=== PATIENT | female | born 1935 | race Two or more races ===

== ENCOUNTER 2016-12-12 05:25 | Inpatient (IN) | payer MEDICARE, BC ==
[~2016-12-12] VITALS: Ht 157.5 cm; Wt 49.4 kg
[2016-12-12] VITALS (7 sets, daily range): BP systolic 121–156; BP diastolic 37–80
[~2016-12-12 05:25] MED LIST: ASPIRIN81 MG ORAL; PROAIR HFA8.5 GM INH; inhaler
[2016-12-12] MEDS ORDERED: Azithromycin Inj IV ONE (05:35)
[2016-12-12] MEDS ORDERED: ADVAIR 100-501 EACH INH (05:42)
[2016-12-12] MEDS ORDERED: Albuterol ud Inhalation HHN ONE ×2 (05:45→06:45)
[2016-12-12] MEDS ORDERED: Ipratropium 0.02% Inh Soln 2.5ml UD HHN ONE (05:45)
[2016-12-12] MEDS ORDERED: Solu-MEDROL 125mg Inj IVP ONE (05:45)
--- NOTE | 2016-12-12 05:45 | Emergency Room Report ---
History of Present Illness General Chief Complaint: Asthma Source: Patient Present Illness HPI This is a 81-year-old female with a history of asthma. She presents with chief complaint of shortness of breath. She has congestion and cough the last 3 days. Not getting better with her Advair. She has no other inhaler. Denies any chest pain. Has chest tightness. Also with subjective high fever tonight. Coughing is positive for phlegm. No abdominal pain. No diarrhea. Allergies: Coded Allergies: No Known Allergies (Unverified , 07/11/14) Patient History Past Medical History: see triage record, old chart reviewed, asthma Past Surgical History: other Pertinent Family History: none Social History: Denies: smoking Now: No Immunizations: other Reviewed Nursing Documentation: PMH: Agreed, PSxH: Agreed Nursing Documentation-PMH Hx Cardiac Problems: No Hx Asthma: Yes Hx Cancer: No Hx Gastrointestinal Problems: No Hx Neurological Problems: Yes Hx Dizziness: Yes Review of Systems Constitutional: Reports: fever, malaise Eye: Denies: blurred vision, eye pain ENT: Denies: ear pain, nose congestion, throat swelling Respiratory: Reports: cough, shortness of breath, wheezing Cardiovascular: Denies: chest pain, palpitations Gastrointestinal: Denies: abdominal pain, diarrhea, nausea, vomiting Musculoskeletal: Denies: back pain, joint pain Skin: Denies: rash Neurological: Denies: headache, numbness Endocrine: Denies: increased thirst, increased urine Hematologic/Lymphatic: Denies: easy bruising All Other Systems: negative except mentioned in HPI Physical Exam Vital Signs Date Time Temp Pulse Resp B/P Pulse Ox O2 Delivery O2 Flow Rate FiO2 12/12/16 05:29 99.3 100 18 128/55 90 Room Air vitals with fever and hypoxia Sp02 EP Interpretation: abnormal General Appearance: alert, mild distress, thin Head: normocephalic, atraumatic Eyes: bilateral eye EOMI, bilateral eye PERRL ENT: hearing grossly normal, normal pharynx Neck: full range of motion, supple, no meningismus Respiratory: chest non-tender, decreased breath sounds, wheezing Cardiovascular #1: regular rate, rhythm, no murmur Gastrointestinal: normal bowel sounds, non tender, no mass, no organomegaly, no bruit, non-distended Musculoskeletal: back normal, gait/station normal, normal range of motion Neurologic: alert, oriented x3 Psychiatric: mood/affect normal Skin: warm/dry Medical Decision Making Diagnostic Impression: Primary Impression: Asthma attack Additional Impression: Acute respiratory failure with hypoxia ER Course Patient presents with asthma exacerbation and mild hypoxia. After breathing treatment oxygenation is now 93%. Most likely a viral illness. She's not on albuterol at home. Labs unremarkable so far. Because of her age and hypoxia, will admit for further treatment. EKG Diagnostic Results Rate: normal Rhythm: NSR ST Segments: no acute changes Rhythm Strip Diag. Results EP Interpretation: yes Rate: 85 Rhythm: NSR, no PVC's, no ectopy Chest X-Ray Diagnostic Results EP Interpretation: Yes Findings: no consolidation, no effusion, no pneumothorax, no acute cardiopulmonary disease Number of Views: 1 Last Vital Signs Date Time Temp Pulse Resp B/P Pulse Ox O2 Delivery O2 Flow Rate FiO2 12/12/16 05:29 99.3 100 18 128/55 90 Room Air Status: improved Disposition: ADMITTED INPATIENT Condition: Serious HUMZA CASON M.D. Dec 12, 2016 05:45
[2016-12-12 06:15] LABS: APPEARANCE,URINE CLEAR; BASOPHILS % (AUTO) 1.1 % (0.0-2.0); EOSINOPHILS % (AUTO) 0.5 % (0.0-3.0); KETONES,URINE 2+ (NEGATIVE); LEUKOCYTE ESTERASE ,URINE 1+ (NEGATIVE); LYMPHOCYTES % (AUTO) 23.1 % (20.0-45.0); MEAN CORPUSCULAR HEMOGLOBIN 26.7 PG (27.0-31.0); MEAN CORPUSCULAR HGB CONC 32.4 G/DL (32.0-36.0); MEAN CORPUSCULAR VOLUME 82 FL (80-99); MEAN PLATELET VOLUME 9.6 FL (6.5-10.1); MONOCYTES % (AUTO) 9.2 % (1.0-10.0); NEUTROPHILS % (AUTO) 66.2 % (45.0-75.0); NITRITE,URINE NEGATIVE (NEGATIVE); PH,URINE 5 (4.5-8.0); PLATELET COUNT 211 K/UL (150-450); PROTEIN,URINE 1+ (NEGATIVE); RED BLOOD COUNT 5.71 M/UL (4.20-5.40); RED CELL DISTRIBUTION WIDTH 12.8 % (11.6-14.8); UROBILINOGEN,URINE NORMAL MG/DL (0.0-1.0); WHITE BLOOD COUNT 9.7 K/UL (4.8-10.8)
[2016-12-12 06:27] LABS: SQUAMOUS EPITHELIAL CELL,UR MODERATE /LPF (NONE/OCC)
[2016-12-12 06:28] LABS: BACTERIA,URINE FEW /HPF; MUCUS,URINE FEW /LPF (NONE/OCC)
[2016-12-12 06:45] LABS: ALANINE AMINOTRANSFERASE 11 U/L (3-33); ALBUMIN/GLOBULIN RATIO 1.2 (1.0-2.7); ANION GAP 18 (5-15); ASPARTATE AMINO TRANSFERASE 20 U/L (5-40); CALCIUM 9.5 mg/dL (8.6-10.2); CARBON DIOXIDE 24 mEQ/L (20-30); CHLORIDE 97 mEQ/L (98-107); CREATININE 0.8 mg/dL (0.5-0.9); HEMOLYSIS 25; SODIUM 139 mEQ/L (135-145); TOTAL PROTEIN 7.9 g/dL (6.6-8.7)
[2016-12-12 06:46] LABS: TROPONIN I < 0.30 ng/mL (<=0.30)
[2016-12-12 06:55] LABS: CKMB < 1.5 ng/mL (< 3.8)
[2016-12-12] MEDS ORDERED: Azithromycin 500 MG in NS 275 ML IV ONE (07:00)
[2016-12-12] MEDS ORDERED: guaiFENesin w/Codeine 5ml Liq ud ORAL PRN (10:00)
[2016-12-12] MEDS: Albuterol ud Inhalation HHN SCH ×4 (11:00→23:00)
[2016-12-12] MEDS: cefTRIAXone 1gm/D5W 55ml IVPB SCH ×2 (11:00)
--- NOTE | 2016-12-12 11:06 | Diagnostic Imaging Report ---
Indication: Shortness of breath Comparison: 07/11/14 A single view chest radiograph was obtained. Findings: No definite infiltrate or pulmonary vascular congestion identified. The heart is enlarged. The aorta is mildly enlarged consistent with atherosclerotic vascular disease. The bones are osteopenic. Impression: No acute disease
[2016-12-12] MEDS: Advair 250/50 Inhaler - 14 dose INH SCH (18:00)
[2016-12-12] MEDS ORDERED: Advair 250/50 Inhaler - 14 dose INH SCH (18:00)
--- NOTE | 2016-12-12 22:28 | History and Physical Report ---
DATE OF ADMISSION: 12/12/2016 REASON FOR ADMISSION: Asthma exacerbation. HISTORY OF PRESENT ILLNESS: The patient is a 81-year-old female, with a history of asthma, who presents with increasing shortness of breath, congestion, and cough over the past 72 hours. The patient had been taking Advair, but has not improved. The patient denies any chest pain. She admits to chest tightness. The patient also with subjective fevers, cough, and difficulty to mobilize sputum. The patient presented to the emergency room and was treated accordingly, and now being admitted for asthma exacerbation. PAST MEDICAL HISTORY: Notable for the above. MEDICATIONS: Noted. ALLERGIES: Noted. SOCIAL HISTORY: The patient does not smoke or drink. She is of [place] descent. She is currently retired. Lives with family. FAMILY HISTORY: Reviewed and is otherwise noncontributory. REVIEW OF SYSTEMS: All 10-point is reviewed and notable for the above including fevers, malaise, cough, shortness of breath, wheezing, chest tightness, and some respiratory complaints. PHYSICAL EXAMINATION: GENERAL: A well-developed female, overall comfortable. VITAL SIGNS: The vital signs in the emergency room on initial evaluation, pulse 100, temperature 99.3 degrees, respiratory rate 18, blood pressure 128/55, and saturating 90%, thereafter saturations are now 97% on two liters of oxygen. HEENT: Fairly negative. Extraocular movements are grossly intact. Pupils are equal and reactive. LUNGS: With scattered wheezes. Moderate breath sounds. Minimal expiratory rhonchi. CARDIAC: Normal S1 and S2. Regular rate and rhythm without murmurs, rubs, or gallops. ABDOMEN: Soft, nontender, and nondistended. EXTREMITIES: No cyanosis or clubbing. No edema. NEUROLOGIC: Grossly nonfocal. LABORATORY DATA: Reviewed. CBC is essentially normal. Chemistry is fairly normal as well. All reviewed. Blood sugar is slightly elevated at 124. Urinalysis with 2 to 4 white cells. IMPRESSION: 1. Asthma with acute exacerbation. 2. Respiratory insufficiency. 3. Possible mild underlying respiratory infection, otherwise clinically stable. RECOMMENDATIONS: 1. IV Solu-Medrol. 2. Nebulizer therapy. 3. Empiric antibiotics. 4. Oxygen therapy. 5. DVT prophylaxis. 6. Monitor clinically and discharge with home health once improved. Colby Hernandez M.D. DR: KEM JOB#: [id number] CC:
[2016-12-12] MEDS: Solu-MEDROL 40mg Inj IVP SCH (23:33)
[2016-12-12] MEDS: Heparin 5000 units/ml inj SUBQ SCH (23:33)
[2016-12-13 00:54] VITALS: BP 123/51
[2016-12-13] MEDS: Albuterol ud Inhalation HHN SCH ×6 (03:00→23:00)
[2016-12-13 04:00] VITALS: BP 137/62
[2016-12-13 08:00] VITALS: BP 118/55
[2016-12-13] MEDS: Solu-MEDROL 40mg Inj IVP SCH ×2 (08:22→20:36)
--- NOTE | 2016-12-13 08:23 | General Progress Note ---
Assessment/Plan Assessment/Plan IMPRESSION: 1. Asthma with acute exacerbation. 2. Respiratory insufficiency. 3. Possible mild underlying respiratory infection PLAN same overall continue same oxygen iv solumedrol marquita galarza dc when improved impression, plan, and exam edited and reviewed in detail care discussed with RN Subjective Allergies: Coded Allergies: No Known Allergies (Unverified , 07/11/14) Subjective better less sob still with cough and wheeze Objective Last 24 Hour Vital Signs Date Time Temp Pulse Resp B/P Pulse Ox O2 Delivery O2 Flow Rate FiO2 12/13/16 04:00 97.9 73 21 137/62 92 Room Air 12/13/16 00:54 97.7 61 19 123/51 92 Nasal Cannula 12/12/16 21:50 97.3 64 18 132/70 95 Nasal Cannula 2.0 12/12/16 20:22 68 16 147/69 95 Nasal Cannula 2.0 12/12/16 20:00 98.6 101 20 136/80 91 Room Air 12/12/16 19:41 98.0 68 16 147/69 95 Nasal Cannula 2.0 12/12/16 15:27 97.8 65 16 121/62 94 Nasal Cannula 2.0 12/12/16 09:00 99.2 88 18 132/55 99 Nasal Cannula 2.0 28 Intake and Output 12/12/16 12/13/16 19:00 07:00 Intake Total 1275 ml 1100 ml Balance 1275 ml 1100 ml Intake Oral 0 ml IV Total 1275 ml 1100 ml # Voids 2 Height (Feet): 5 Height (Inches): 2.00 Weight (Pounds): 109 Objective GENERAL: A well-developed female, overall comfortable. HEENT: Fairly negative. Extraocular movements are grossly intact. Pupils are equal and reactive. LUNGS: With some scattered wheezes. Moderate breath sounds. Minimal expiratory rhonchi and improved CARDIAC: Normal S1 and S2. Regular rate and rhythm without murmurs, rubs, or gallops. ABDOMEN: Soft, nontender, and nondistended. EXTREMITIES: No cyanosis or clubbing. No edema. NEUROLOGIC: Grossly nonfocal. YADIRA WHITE Dec 13, 2016 08:23
[2016-12-13] MEDS: Heparin 5000 units/ml inj SUBQ SCH ×2 (08:27→20:37)
[2016-12-13] MEDS: Advair 250/50 Inhaler - 14 dose INH SCH ×2 (09:00→20:37)
[2016-12-13] MEDS: cefTRIAXone 1gm/D5W 55ml IVPB SCH ×2 (11:21)
[2016-12-13 12:40] VITALS: BP 143/63
[2016-12-13 16:30] VITALS: BP 110/51
[2016-12-13 20:00] VITALS: BP 114/57
[2016-12-14] VITALS: BP 133/66
[2016-12-14] MEDS: Albuterol ud Inhalation HHN SCH ×5 (00:24→15:13)
[2016-12-14 04:00] VITALS: BP 121/60
[2016-12-14 08:00] VITALS: BP 112/56
[2016-12-14] MEDS: Heparin 5000 units/ml inj SUBQ SCH (08:01)
[2016-12-14] MEDS: Solu-MEDROL 40mg Inj IVP SCH (08:01)
[2016-12-14] MEDS: Advair 250/50 Inhaler - 14 dose INH SCH (09:09)
[2016-12-14] MEDS: cefTRIAXone 1gm/D5W 55ml IVPB SCH ×2 (10:49)
--- NOTE | 2016-12-14 11:31 | Cardiology Report ---
APPROVED REPORT EKG Measurement Heart [id number] IN [id number] Normal sinus rhythm Normal ECG
[2016-12-14 12:00] VITALS: BP 140/91
--- NOTE | 2016-12-14 12:00 | General Progress Note ---
Assessment/Plan Assessment/Plan IMPRESSION: 1. Asthma with acute exacerbation. 2. Respiratory insufficiency. 3. Possible mild underlying respiratory infection PLAN dc home medrol tammi albuterol prn advair home health stable at present impression, plan, and exam edited and reviewed in detail care discussed with RN Subjective Allergies: Coded Allergies: No Known Allergies (Unverified , 07/11/14) Subjective significantly improved wants to go home Objective Last 24 Hour Vital Signs Date Time Temp Pulse Resp B/P Pulse Ox O2 Delivery O2 Flow Rate FiO2 12/14/16 08:00 97.5 87 20 112/56 95 Nasal Cannula 2.0 12/14/16 07:05 85 20 99 Nasal Cannula 1.0 24 12/14/16 07:04 Nasal Cannula 1.0 24 12/14/16 07:04 97 Nasal Cannula 1.0 24 12/14/16 07:00 79 20 97 Nasal Cannula 1.0 24 12/14/16 04:00 97.2 81 18 121/60 98 Nasal Cannula 2.0 12/14/16 03:30 62 20 99 Nasal Cannula 1.0 24 12/14/16 03:30 60 20 97 Nasal Cannula 1.0 24 12/14/16 00:00 97.5 66 18 133/66 94 Room Air 12/13/16 23:30 65 20 99 Room Air 21 12/13/16 23:30 61 20 98 Room Air 21 12/13/16 20:00 97.7 86 19 114/57 94 Room Air 12/13/16 19:40 76 20 99 Nasal Cannula 2.0 12/13/16 19:30 97 Nasal Cannula 1.0 24 12/13/16 19:30 Nasal Cannula 1.0 24 12/13/16 19:30 75 20 98 Nasal Cannula 2.0 12/13/16 16:30 98.1 92 19 110/51 96 Nasal Cannula 2.0 12/13/16 15:28 82 18 99 Nasal Cannula 2.0 28 12/13/16 15:20 28 12/13/16 15:20 84 18 97 Nasal Cannula 2.0 28 12/13/16 12:40 97.0 79 18 143/63 94 Nasal Cannula 2.0 12/13/16 12:28 73 18 99 Nasal Cannula 1.0 12/13/16 12:23 68 18 98 Nasal Cannula 1.0 24 12/13/16 12:21 68 18 Nasal Cannula 1.0 Intake and Output 12/13/16 12/14/16 19:00 07:00 Intake Total 1700 ml 1460 ml Balance 1700 ml 1460 ml Intake Oral 600 ml 360 ml IV Total 1100 ml 1100 ml # Voids 1 2 Height (Feet): 5 Height (Inches): 2.00 Weight (Pounds): 109 Objective GENERAL: A well-developed female, overall comfortable. HEENT: Fairly negative. Extraocular movements are grossly intact. Pupils are equal and reactive. LUNGS: Moderate breath sounds. resolved wheeze and rhonchi CARDIAC: Normal S1 and S2. Regular rate and rhythm without murmurs, rubs, or gallops. ABDOMEN: Soft, nontender, and nondistended. EXTREMITIES: No cyanosis or clubbing. No edema. NEUROLOGIC: Grossly nonfocal. YADIRA WHITE Dec 14, 2016 12:00
[2016-12-14 16:28] VITALS: BP 131/58
--- NOTE | 2016-12-16 14:40 | Discharge Summary ---
Discharge Summary Hospital Course Date of Admission Dec 12, 2016 at 18:51 Date of Discharge Dec 14, 2016 at 17:02 Admitting Diagnosis Asthma Exacerbation HPI Oni Newman is a 81 year old female who was admitted on Dec 12, 2016 at 18:51 for Asthma Exacerbation Hospital Course [id number] Discharge Discharge Disposition Patient was discharged to Home (01) Discharge Diagnoses: China Rodrigues NP Dec 16, 2016 14:40
--- NOTE | 2016-12-17 02:18 | Discharge Summary 2 SIG ---
DATE OF ADMISSION: 12/12/2016 DATE OF DISCHARGE: 12/14/2016 BRIEF HOSPITAL COURSE: The patient is a 81-year-old female with history of asthma presented with increasing shortness of breath, congestion, and cough over the past 72 hours. The patient had been taking Advair, but has not improved. She presents with subjective fevers, cough and difficulty to mobilize sputum. She was admitted for asthma exacerbation and was given oxygen therapy, nebulizer therapy, IV Solu-Medrol and was started on empiric antibiotics ceftriaxone. Chest x-ray showed no acute disease. Blood culture did not isolate any growth. She was continued on Advair and was feeling better with less shortness of breath and significant improvement in breathing. She was eventually discharged home with home health. Advised to continue Medrol Abhijit as outpatient. FINAL DIAGNOSES: 1. Asthma with acute exacerbation. 2. Respiratory insufficiency. 3. Possible underlying respiratory infection. Colby Hernandez M.D. I have been assigned to dictate discharge summary on this account and I was not involved in the patient's management. China Rodrigues N.P. DR: Todd JOB#: [id number] CC: ELE
== END 2016-12-14 17:02 | disposition home health service (06) | DRG 203 ==
LOC: EMR 06:01 → EDBEDREQ 18:37 → 3E 18:51
DX: J45.901 Unspecified asthma with (acute) exacerbation (principal); J06.9 Acute upper respiratory infection, unspecified
CPT/HCPCS: 36415; 71010; 80053; 81003; 82550; 82553; 83605; 84484; 85025; 87040; 93005; 94640; 94664; 94760